=== PATIENT | male | born 1940 | race Caucasian/White ===

== ENCOUNTER 2018-04-14 14:43 | Inpatient (IN) | payer MEDICARE, OTHER ==
[~2018-04-14] VITALS: Ht 167.6 cm; Wt 57.0 kg
[~2018-04-14 14:43] MED LIST: ACIDOPHILUS100 MG PO; CHLO25TA10 PO; METF500T PO; SIMV20TA5 PO; SOLI10TA2 PO
[2018-04-14 15:12] LABS: BASOPHILS % (AUTO) 0.6 % (0-1); EOSINOPHILS # (AUTO) 0.4 X10'3 (0-0.9); EOSINOPHILS % (AUTO) 6.5 % (0-6); HEMATOCRIT 38.7 % (42.0-52.0); HEMOGLOBIN 13.2 g/dl (14.0-17.9); LYMPHOCYTES # (AUTO) 1.6 X10'3 (1.1-4.8); LYMPHOCYTES % (AUTO) 27.3 % (21-51); MEAN CORPUSCULAR HEMOGLOBIN 31.5 PG (27.0-31.0); MEAN CORPUSCULAR VOLUME 92.4 FL (78-98); MEAN PLATELET VOLUME 7.4 FL (7.4-10.4); MONOCYTES # (AUTO) 0.8 X10'3 (0-0.9); MONOCYTES % (AUTO) 12.9 % (2-12); NEUTROPHILS # (AUTO) 3.2 X10'3 (1.8-7.7); NEUTROPHILS % (AUTO) 52.7 % (42-75); PLATELET COUNT 240 X10'3 (140-440); RED BLOOD COUNT 4.18 X10'6 (4.70-6.10); RED CELL DISTRIBUTION WIDTH 12.6 % (11.5-14.5)
[2018-04-14 15:22] LABS: PARTIAL THROMBOPLASTIN TIME 25 SECONDS (22-32); PROTHROMBIN TIME 10.5 SECONDS (9.0-12.0)
[2018-04-14 15:29] LABS: ALANINE AMINOTRANSFERASE 27 U/L (12-78); ALBUMIN 4.1 G/DL (3.4-5.0); ALBUMIN/GLOBULIN RATIO 1.4 (1.1-1.5); ALKALINE PHOSPHATASE 41 IU/L (46-116); ANION GAP 2 (8-16); ASPARTATE AMINO TRANSFERASE 16 U/L (10-37); BILIRUBIN,TOTAL 0.4 MG/DL (0.1-1.0); BLOOD UREA NITROGEN 11 MG/DL (7-18); BUN/CREATININE RATIO 9.6 (5.4-32.0); CALCIUM 9.2 MG/DL (8.5-10.1); CHLORIDE 94 MMOL/L (99-107); CREATININE 1.14 MG/DL (0.60-1.10); GLUCOSE 119 MG/DL (70-104); POTASSIUM 3.6 MMOL/L (3.5-5.1); SODIUM 128 MMOL/L (135-145); TOTAL CARBON DIOXIDE 31.6 MMOL/L (24-32); TOTAL PROTEIN 7.1 G/DL (6.4-8.2); eGFR 62 ML/MIN
[2018-04-14] MEDS ORDERED: CHOL100025 PO (16:36)
[2018-04-14] MEDS ORDERED: MESSAGE TO PHARMACY PO ONE (18:15)
[2018-04-14] MEDS ORDERED: dextrose 50%-water 50ml dispensing syringe IV PRN ×2 (18:15)
[2018-04-14] MEDS ORDERED: insulin Lispro (HumaLOG) vial - multi-dose SQ SCH (18:15)
[2018-04-14] MEDS ORDERED: dextrose ORAL solution 15 GM/59 ML bottle PO PRN ×2 (18:15)
[2018-04-14] MEDS ORDERED: glucagon, human recombinant 1mg kit SUBCUT PRN (18:15)
[2018-04-14] MEDS ORDERED: acetaminophen 325mg tablet PO PRN (19:40)
[2018-04-14] MEDS ORDERED: magnesium hydroxide 30ml (MOM) UD suspension PO PRN (19:40)
[2018-04-14] MEDS ORDERED: mag hydrox/Alum hydrox/simeth 30ml oral suspension PO PRN (19:40)
[2018-04-14] MEDS ORDERED: ondansetron/PF 4mg/2ml inj IV PRN (19:40)
[2018-04-14] MEDS ORDERED: insulin glargine (Lantus) pen - multi-dose SQ SCH (21:00)
[2018-04-14] MEDS ORDERED: atorvastatin 10mg tablet PO SCH (21:00)
[2018-04-14 21:20] VITALS: BP 156/83
[2018-04-15 00:15] VITALS: BP 141/87
[2018-04-15 07:00] VITALS: BP 144/81
[2018-04-15] MEDS ORDERED: oxybutynin 5mg tablet PO SCH (08:00)
[2018-04-15] MEDS ORDERED: normal saline 1000ml 1,000 ML IV SCH (09:55)
[2018-04-15 09:59] LABS: ALBUMIN 3.8 G/DL (3.4-5.0); ANION GAP 5 (8-16); BLOOD UREA NITROGEN 12 MG/DL (7-18); BUN/CREATININE RATIO 10.5 (5.4-32.0); CALCIUM 9.1 MG/DL (8.5-10.1); CHLORIDE 95 MMOL/L (99-107); CREATININE 1.14 MG/DL (0.60-1.10); GLUCOSE 174 MG/DL (70-104); POTASSIUM 3.5 MMOL/L (3.5-5.1); SODIUM 132 MMOL/L (135-145); TOTAL CARBON DIOXIDE 32.2 MMOL/L (24-32); eGFR 62 ML/MIN
[2018-04-15 10:05] LABS: BASOPHILS % (AUTO) 0.3 % (0-1); EOSINOPHILS # (AUTO) 0.2 X10'3 (0-0.9); EOSINOPHILS % (AUTO) 3.9 % (0-6); HEMATOCRIT 39.9 % (42.0-52.0); HEMOGLOBIN 13.8 g/dl (14.0-17.9); LYMPHOCYTES % (AUTO) 17.2 % (21-51); MEAN CORPUSCULAR HEMOGLOBIN 31.8 PG (27.0-31.0); MEAN CORPUSCULAR HGB CONC 34.7 % (33.0-36.5); MEAN CORPUSCULAR VOLUME 91.7 FL (78-98); MEAN PLATELET VOLUME 7.6 FL (7.4-10.4); MONOCYTES # (AUTO) 0.5 X10'3 (0-0.9); MONOCYTES % (AUTO) 9.2 % (2-12); NEUTROPHILS # (AUTO) 3.8 X10'3 (1.8-7.7); NEUTROPHILS % (AUTO) 69.4 % (42-75); PLATELET COUNT 213 X10'3 (140-440); RED BLOOD COUNT 4.35 X10'6 (4.70-6.10); RED CELL DISTRIBUTION WIDTH 12.8 % (11.5-14.5); WHITE BLOOD COUNT 5.5 X10'3 (4.5-11.0)
[2018-04-15 11:52] VITALS: BP 144/83
[2018-04-15 15:30] LABS: ALBUMIN 3.7 G/DL (3.4-5.0); ANION GAP 7 (8-16); BLOOD UREA NITROGEN 12 MG/DL (7-18); BUN/CREATININE RATIO 10.6 (5.4-32.0); CALCIUM 8.6 MG/DL (8.5-10.1); CHLORIDE 97 MMOL/L (99-107); CREATININE 1.13 MG/DL (0.60-1.10); GLUCOSE 142 MG/DL (70-104); POTASSIUM 3.6 MMOL/L (3.5-5.1); SODIUM 134 MMOL/L (135-145); TOTAL CARBON DIOXIDE 29.7 MMOL/L (24-32); eGFR 63 ML/MIN
[2018-04-15] MEDS ORDERED: AMLO2.5T2 PO (15:50)
== END 2018-04-15 16:25 | disposition home or self-care (01) | DRG 641 ==
LOC: ER 14:44 → ED HOLD 19:39 → SUR 3N 21:20
PROVIDERS: ADMIT Internal Medicine; ATTEND Family Medicine
DX: E87.1 Hypo-osmolality and hyponatremia (principal); R42 Dizziness and giddiness; E11.9 Type 2 diabetes mellitus without complications; E78.5 Hyperlipidemia, unspecified; I10 Essential (primary) hypertension; E86.9 Volume depletion, unspecified; Z85.038 Personal history of other malignant neoplasm of large intestine; Z85.46 Personal history of malignant neoplasm of prostate; Z90.79 Acquired absence of other genital organ(s); Z88.6 Allergy status to analgesic agent; Z91.018 Allergy to other foods; Z90.49 Acquired absence of other specified parts of digestive tract; Z79.899 Other long term (current) drug therapy
CPT/HCPCS: 36415; 71045; 80048; 80053; 82948; 83036; 84484; 85025; 85610; 85730; 87070; 99285; J1815; J7030

== ENCOUNTER 2020-05-19 18:43 | Emergency (ER) | payer OTHER, MEDICARE ==
[~2020-05-19] VITALS: Ht 167.6 cm; Wt 64.1 kg
[~2020-05-19 18:43] MED LIST changes: -CHLO25TA10 PO; +CHOL100025 PO; +SIMV-42 PO; -SIMV20TA5 PO
[2020-05-19 19:11] VITALS: BP 126/88
[2020-05-19] MEDS ORDERED: dexamethasone sod phosphate 10mg/ml inj IM STA (20:22)
== END 2020-05-19 21:45 | disposition home or self-care (01) ==
LOC: ER 18:44
DX: L29.8 Other pruritus (principal); R21 Rash and other nonspecific skin eruption; K59.00 Constipation, unspecified; I10 Essential (primary) hypertension; E11.9 Type 2 diabetes mellitus without complications; Z85.038 Personal history of other malignant neoplasm of large intestine; Z98.890 Other specified postprocedural states; Z88.8 Allergy status to other drugs, medicaments and biological substances; Z79.899 Other long term (current) drug therapy
CPT/HCPCS: 96372; 99283; J1100

== ENCOUNTER 2020-07-24 17:35 | Emergency (ER) | payer OTHER, MEDICARE ==
[~2020-07-24] VITALS: Ht 167.6 cm; Wt 65.0 kg
[2020-07-24 18:48] LABS: BASOPHILS % (AUTO) 0.7 % (0-1); EOSINOPHILS # (AUTO) 0.3 X10'3 (0-0.9); EOSINOPHILS % (AUTO) 6.1 % (0-6); HEMATOCRIT 37.3 % (42.0-52.0); HEMOGLOBIN 12.5 g/dl (14.0-17.9); LYMPHOCYTES # (AUTO) 0.9 X10'3 (1.1-4.8); LYMPHOCYTES % (AUTO) 20.1 % (21-51); MEAN CORPUSCULAR HEMOGLOBIN 30.9 PG (27.0-31.0); MEAN CORPUSCULAR HGB CONC 33.6 g/dL (33.0-36.5); MEAN CORPUSCULAR VOLUME 91.9 FL (78-98); MEAN PLATELET VOLUME 7.8 FL (7.4-10.4); MONOCYTES # (AUTO) 0.9 X10'3 (0-0.9); MONOCYTES % (AUTO) 19.2 % (2-12); NEUTROPHILS # (AUTO) 2.4 X10'3 (1.8-7.7); NEUTROPHILS % (AUTO) 53.9 % (42-75); PLATELET COUNT 222 X10'3 (140-440); RED BLOOD COUNT 4.06 X10'6 (4.70-6.10); RED CELL DISTRIBUTION WIDTH 12.6 % (11.5-14.5); WHITE BLOOD COUNT 4.5 X10'3 (4.5-11.0)
[2020-07-24 19:19] LABS: ALANINE AMINOTRANSFERASE 20 U/L (12-78); ALBUMIN 3.9 G/DL (3.4-5.0); ALBUMIN/GLOBULIN RATIO 1.2 (1.1-1.5); ALKALINE PHOSPHATASE 49 IU/L (46-116); ANION GAP 6 (8-16); ASPARTATE AMINO TRANSFERASE 20 U/L (10-37); BILIRUBIN,TOTAL 0.3 MG/DL (0.1-1.0); BLOOD UREA NITROGEN 15 MG/DL (7-18); BUN/CREATININE RATIO 12.3 (5.4-32.0); CALCIUM 9.1 MG/DL (8.5-10.1); CHLORIDE 106 MMOL/L (99-107); CREATININE 1.22 MG/DL (0.60-1.10); GLUCOSE 118 MG/DL (70-104); POTASSIUM 3.8 MMOL/L (3.5-5.1); SODIUM 143 MMOL/L (135-145); TOTAL CARBON DIOXIDE 30.6 MMOL/L (24-32); TOTAL PROTEIN 7.2 G/DL (6.4-8.2); eGFR 57 ML/MIN
--- NOTE | 2020-07-24 19:29 | NUR ---
[phone] WIFES NUMBER, PLEASE CALL WITH ANY UPDATES
[2020-07-24 20:00] VITALS: BP 134/77
--- NOTE | 2020-07-24 20:10 | NUR ---
pt resting comfortably, needed leg bag emptied
[2020-07-24] MEDS ORDERED: normal saline 1000ML IV soln IVB ONE (20:35)
== END 2020-07-24 21:22 | disposition home or self-care (01) ==
LOC: ER 17:37
DX: U07.1 COVID-19 (principal); I10 Essential (primary) hypertension; E11.9 Type 2 diabetes mellitus without complications; E78.00 Pure hypercholesterolemia, unspecified; Z79.899 Other long term (current) drug therapy; Z79.82 Long term (current) use of aspirin
CPT/HCPCS: 36415; 71045; 80053; 82948; 83880; 84484; 85025; 87635; 93005; 96360; 99285; J7030

== ENCOUNTER 2021-07-03 09:29 | Emergency (ER) | payer OTHER, MEDICARE ==
[~2021-07-03] VITALS: Ht 167.6 cm; Wt 65.9 kg
[2021-07-03 10:11] LABS: CLARITY,URINE SLIGHTLY CLOUDY (Clear); COLOR,URINE YELLOW (Yellow); GLUCOSE, URINE NEGATIVE (Neg); KETONES,URINE NEGATIVE (Neg); LEUKOCYTE ESTERASE ,URINE NEGATIVE (Neg); NITRITES, URINE NEGATIVE (Neg); OCCULT BLOOD,URINE TRACE-LYSED (Neg); PROTEIN,URINE NEGATIVE (Neg); UA COLLECTION TYPE CLN CATCH MIDSTREAM; UROBILINOGEN,URINE 0.2 E.U/dL (0.2-1.0)
[2021-07-03 10:16] LABS: BACTERIA,URINE NONE SEEN /HPF (Neg); MUCUS STRANDS FEW /LPF (Neg); SQUAMOUS EPITHELIAL CELL,UR MODERATE /LPF (FEW)
[2021-07-03] MEDS ORDERED: SULF1TAB49 PO (10:52)
== END 2021-07-03 10:59 | disposition home or self-care (01) ==
LOC: ER 09:30
DX: N50.82 Scrotal pain (principal); E78.00 Pure hypercholesterolemia, unspecified; I10 Essential (primary) hypertension; E11.9 Type 2 diabetes mellitus without complications; Z85.038 Personal history of other malignant neoplasm of large intestine; Z98.890 Other specified postprocedural states; Z88.8 Allergy status to other drugs, medicaments and biological substances; Z79.2 Long term (current) use of antibiotics; Z79.899 Other long term (current) drug therapy
CPT/HCPCS: 81001; 87077; 87088; 87186; 99283

== ENCOUNTER 2021-10-10 06:18 | Emergency (ER) | payer OTHER, MEDICARE ==
[~2021-10-10] VITALS: Ht 167.6 cm; Wt 63.8 kg
[~2021-10-10 06:18] MED LIST changes: -SOLI10TA2 PO; +UNABLE TO OBTAIN
[2021-10-10 06:56] VITALS: BP 137/84
== END 2021-10-10 07:04 | disposition left against medical advice (07) ==
LOC: ER 06:19
DX: R21 Rash and other nonspecific skin eruption (principal); Z53.21 Procedure and treatment not carried out due to patient leaving prior to being seen by health care provider

== ENCOUNTER 2022-01-02 06:52 | Emergency (ER) | payer OTHER, MEDICARE ==
[~2022-01-02] VITALS: Ht 167.6 cm; Wt 63.6 kg
[2022-01-02 08:55] LABS: COLOR,URINE YELLOW (Yellow); GLUCOSE, URINE NEGATIVE (Neg); KETONES,URINE TRACE mg/dl (Neg); LEUKOCYTE ESTERASE ,URINE MODERATE (Neg); NITRITES, URINE POSITIVE (Neg); OCCULT BLOOD,URINE SMALL (Neg); PROTEIN,URINE TRACE mg/dl (Neg); UA COLLECTION TYPE CLN CATCH MIDSTREAM; UROBILINOGEN,URINE 0.2 E.U/dL (0.2-1.0)
[2022-01-02 08:56] LABS: CLARITY,URINE CLOUDY (Clear)
[2022-01-02 09:00] LABS: BACTERIA,URINE 3+ /HPF (Neg); MUCUS STRANDS NONE SEEN /LPF (Neg); SQUAMOUS EPITHELIAL CELL,UR FEW /LPF (FEW); WBC CLUMPS,URINE MANY /HPF (NEGATIVE); WBC,URINE TNTC /HPF (0-4)
[2022-01-02 09:17] LABS: BASOPHILS % (AUTO) 0.5 % (0-1); EOSINOPHILS # (AUTO) 0.1 X10'3 (0-0.9); EOSINOPHILS % (AUTO) 0.7 % (0-6); HEMATOCRIT 37.4 % (42.0-52.0); HEMOGLOBIN 12.6 g/dl (14.0-17.9); LYMPHOCYTES # (AUTO) 0.9 X10'3 (1.1-4.8); MEAN CORPUSCULAR HEMOGLOBIN 30.6 PG (27.0-31.0); MEAN CORPUSCULAR HGB CONC 33.8 g/dL (33.0-36.5); MEAN CORPUSCULAR VOLUME 90.6 FL (78-98); MEAN PLATELET VOLUME 7.4 FL (7.4-10.4); MONOCYTES # (AUTO) 0.6 X10'3 (0-0.9); MONOCYTES % (AUTO) 7.8 % (2-12); NEUTROPHILS # (AUTO) 6.2 X10'3 (1.8-7.7); PLATELET COUNT 228 X10'3 (140-440); RED BLOOD COUNT 4.13 X10'6 (4.70-6.10); RED CELL DISTRIBUTION WIDTH 12.5 % (11.5-14.5); WHITE BLOOD COUNT 7.9 X10'3 (4.5-11.0)
[2022-01-02 09:37] LABS: ALANINE AMINOTRANSFERASE 17 U/L (12-78); ALBUMIN 4.3 G/DL (3.4-5.0); ALBUMIN/GLOBULIN RATIO 1.3 (1.1-1.5); ALKALINE PHOSPHATASE 47 IU/L (46-116); ANION GAP 11 (8-16); ASPARTATE AMINO TRANSFERASE 24 U/L (10-37); BILIRUBIN,TOTAL 0.4 MG/DL (0.1-1.0); BLOOD UREA NITROGEN 17 MG/DL (7-18); BUN/CREATININE RATIO 13.6 (5.4-32.0); CALCIUM 9.4 MG/DL (8.5-10.1); CHLORIDE 98 MMOL/L (99-107); CREATININE 1.25 MG/DL (0.60-1.10); GLUCOSE 149 MG/DL (70-104); POTASSIUM 3.9 MMOL/L (3.5-5.1); SODIUM 136 MMOL/L (135-145); TOTAL CARBON DIOXIDE 27.2 MMOL/L (24-32); TOTAL PROTEIN 7.6 G/DL (6.4-8.2); eGFR 55 ML/MIN
[2022-01-02 09:46] VITALS: BP 133/105
[2022-01-02] MEDS ORDERED: CefTRIAXone 1000mg IM Kit (w/lidocaine diluent) IM ONE (10:25)
[2022-01-02] MEDS ORDERED: ibuprofen tablet 400 MG TABLET PO ONE (10:25)
[2022-01-02] MEDS ORDERED: MELO-100 PO (10:27)
== END 2022-01-02 11:09 | disposition home or self-care (01) ==
LOC: ER 06:53
DX: N39.0 Urinary tract infection, site not specified (principal); R00.2 Palpitations; E78.00 Pure hypercholesterolemia, unspecified; I10 Essential (primary) hypertension; E11.9 Type 2 diabetes mellitus without complications; Z87.440 Personal history of urinary (tract) infections; Z98.890 Other specified postprocedural states; Z85.038 Personal history of other malignant neoplasm of large intestine; Z88.8 Allergy status to other drugs, medicaments and biological substances; Z79.899 Other long term (current) drug therapy
CPT/HCPCS: 36415; 80053; 81001; 84145; 85025; 87088; 96372; 99284; J0696; 87077; 87186

== ENCOUNTER 2022-01-10 07:10 | Emergency (ER) | payer OTHER, MEDICARE ==
[~2022-01-10] VITALS: Ht 167.6 cm; Wt 63.6 kg
[~2022-01-10 07:10] MED LIST changes: +MELO-100 PO
[2022-01-10 09:37] LABS: CLARITY,URINE SLIGHTLY CLOUDY (Clear); COLOR,URINE YELLOW (Yellow); GLUCOSE, URINE 100 mg/dl (Neg); KETONES,URINE NEGATIVE (Neg); LEUKOCYTE ESTERASE ,URINE MODERATE (Neg); NITRITES, URINE POSITIVE (Neg); OCCULT BLOOD,URINE SMALL (Neg); PROTEIN,URINE NEGATIVE (Neg); UROBILINOGEN,URINE 0.2 E.U/dL (0.2-1.0)
[2022-01-10 09:45] LABS: UA COLLECTION TYPE VOIDED
[2022-01-10 09:47] LABS: RBC,URINE 0-2 /HPF (0-2); WBC,URINE 50-100 /HPF (0-4)
[2022-01-10 09:48] LABS: BACTERIA,URINE 1+ /HPF (Neg); SQUAMOUS EPITHELIAL CELL,UR FEW /LPF (FEW)
[2022-01-10 10:48] LABS: BASOPHILS % (AUTO) 0.1 % (0-1); EOSINOPHILS # (AUTO) 0.1 X10'3 (0-0.9); EOSINOPHILS % (AUTO) 1.1 % (0-6); HEMATOCRIT 36.8 % (42.0-52.0); HEMOGLOBIN 12.5 g/dl (14.0-17.9); LYMPHOCYTES # (AUTO) 1.2 X10'3 (1.1-4.8); MEAN CORPUSCULAR HEMOGLOBIN 31.2 PG (27.0-31.0); MEAN CORPUSCULAR HGB CONC 33.9 g/dL (33.0-36.5); MEAN PLATELET VOLUME 7.5 FL (7.4-10.4); MONOCYTES # (AUTO) 1.1 X10'3 (0-0.9); MONOCYTES % (AUTO) 10.3 % (2-12); NEUTROPHILS # (AUTO) 7.9 X10'3 (1.8-7.7); NEUTROPHILS % (AUTO) 76.5 % (42-75); PLATELET COUNT 269 X10'3 (140-440); RED CELL DISTRIBUTION WIDTH 12.4 % (11.5-14.5); WHITE BLOOD COUNT 10.4 X10'3 (4.5-11.0)
[2022-01-10 11:00] LABS: ALANINE AMINOTRANSFERASE 16 U/L (12-78); ALBUMIN 4.3 G/DL (3.4-5.0); ALBUMIN/GLOBULIN RATIO 1.2 (1.1-1.5); ALKALINE PHOSPHATASE 47 IU/L (46-116); ANION GAP 8 (8-16); ASPARTATE AMINO TRANSFERASE 15 U/L (10-37); BILIRUBIN,TOTAL 0.4 MG/DL (0.1-1.0); BLOOD UREA NITROGEN 20 MG/DL (7-18); BUN/CREATININE RATIO 15.9 (5.4-32.0); CALCIUM 9.8 MG/DL (8.5-10.1); CHLORIDE 102 MMOL/L (99-107); CREATININE 1.26 MG/DL (0.60-1.10); GLUCOSE 120 MG/DL (70-104); POTASSIUM 4.2 MMOL/L (3.5-5.1); SODIUM 140 MMOL/L (135-145); TOTAL CARBON DIOXIDE 30.4 MMOL/L (24-32); TOTAL PROTEIN 7.8 G/DL (6.4-8.2); eGFR 55 ML/MIN
[2022-01-10 14:20] VITALS: BP 142/76
--- NOTE | 2022-01-13 10:15 | NUR ---
PT CALLED REGARDING LAB RESULTS FROM HIS VISIT ON 01/10/22. PT WAS NOTED TO HAVE A UTI AND WAS NOT GIVEN RX FOR ABX. PT STATES THAT HE SAW HIS UROLOGIST, DR SIMS; THE OTHER DAY AND PUT HIM ON CIPRO. PT INFORMED THAT THE MEDICATION HE IS CURRANTLY ON IS THE MEDICATION THAT WE WERE GOING TO PERSCRIBE. PT STATES THAT HE IS DOING BETTER AND HAD A "BLOCKAGE" AND A NEW CHILDS CATH PLACED.
== END 2022-01-10 14:22 | disposition home or self-care (01) ==
LOC: ER 07:12
DX: N39.0 Urinary tract infection, site not specified (principal); R33.9 Retention of urine, unspecified; E78.00 Pure hypercholesterolemia, unspecified; I10 Essential (primary) hypertension; E11.9 Type 2 diabetes mellitus without complications; Z87.440 Personal history of urinary (tract) infections; Z85.038 Personal history of other malignant neoplasm of large intestine; Z98.890 Other specified postprocedural states; Z88.8 Allergy status to other drugs, medicaments and biological substances; Z79.899 Other long term (current) drug therapy
CPT/HCPCS: 36415; 51702; 74176; 76770; 80053; 81001; 85025; 87077; 87088; 87186; 99284; 99285

== ENCOUNTER 2022-03-17 14:42 | Emergency (ER) | payer OTHER, MEDICARE ==
[~2022-03-17] VITALS: Ht 167.6 cm; Wt 65.9 kg
[2022-03-17] MEDS ORDERED: LIDOcaine 2% 10ml TOPICAL JELLY (Urojet) MM ONE (15:25)
[2022-03-17] MEDS ORDERED: LIDOcaine 2% 10ml TOPICAL JELLY (Urojet) TP ONE (15:35)
[2022-03-17] MEDS ORDERED: morphine 4 MG/ML inj SYRINge IM ONE (17:50)
[2022-03-17 19:30] VITALS: BP 149/89
[2022-04-02] MEDS ORDERED: LEVO-65 PO (14:04)
== END 2022-03-17 19:39 | disposition home or self-care (01) ==
LOC: ER 14:43
DX: R33.9 Retention of urine, unspecified (principal); E78.00 Pure hypercholesterolemia, unspecified; I10 Essential (primary) hypertension; E11.9 Type 2 diabetes mellitus without complications; Z85.038 Personal history of other malignant neoplasm of large intestine; Z88.6 Allergy status to analgesic agent; Z79.899 Other long term (current) drug therapy; Z79.84 Long term (current) use of oral hypoglycemic drugs
CPT/HCPCS: 51702; 96372; 99284; J2270; A4314; A4340; C1758

== ENCOUNTER 2022-04-02 09:32 | Emergency (ER) | payer OTHER, MEDICARE ==
[~2022-04-02] VITALS: Ht 167.6 cm; Wt 61.0 kg
[2022-04-02 10:03] LABS: CLARITY,URINE CLOUDY (Clear); COLOR,URINE YELLOW (Yellow); GLUCOSE, URINE NEGATIVE (Neg); KETONES,URINE NEGATIVE (Neg); LEUKOCYTE ESTERASE ,URINE SMALL (Neg); NITRITES, URINE POSITIVE (Neg); OCCULT BLOOD,URINE MODERATE (Neg); PH,URINE 5.5 (4.8-8.0); PROTEIN,URINE TRACE mg/dl (Neg); UA COLLECTION TYPE FOLEY CATH; UROBILINOGEN,URINE 0.2 E.U/dL (0.2-1.0)
[2022-04-02 10:17] LABS: MUCUS STRANDS MODERATE /LPF (Neg); SQUAMOUS EPITHELIAL CELL,UR MODERATE /LPF (FEW)
[2022-04-02 10:18] LABS: TRANSITIONAL EPI CELLS,URINE FEW /HPF; YEAST MANY /HPF (NEGATIVE)
[2022-04-02 10:19] LABS: BACTERIA,URINE FEW /HPF (Neg); RBC,URINE 0-2 /HPF (0-2); WBC CLUMPS,URINE MANY /HPF (NEGATIVE)
[2022-04-02 11:55] VITALS: BP 149/84
[2022-04-02 12:47] LABS: BASOPHILS % (AUTO) 0.3 % (0-1); EOSINOPHILS # (AUTO) 0.1 X10'3 (0-0.9); EOSINOPHILS % (AUTO) 1.1 % (0-6); HEMATOCRIT 37.5 % (42.0-52.0); HEMOGLOBIN 12.6 g/dl (14.0-17.9); LYMPHOCYTES # (AUTO) 1.4 X10'3 (1.1-4.8); LYMPHOCYTES % (AUTO) 14.5 % (21-51); MEAN CORPUSCULAR HEMOGLOBIN 30.8 PG (27.0-31.0); MEAN CORPUSCULAR HGB CONC 33.7 g/dL (33.0-36.5); MEAN CORPUSCULAR VOLUME 91.4 FL (78-98); MEAN PLATELET VOLUME 7.7 FL (7.4-10.4); MONOCYTES # (AUTO) 0.8 X10'3 (0-0.9); MONOCYTES % (AUTO) 8.5 % (2-12); NEUTROPHILS # (AUTO) 7.2 X10'3 (1.8-7.7); NEUTROPHILS % (AUTO) 75.6 % (42-75); PLATELET COUNT 273 X10'3 (140-440); RED CELL DISTRIBUTION WIDTH 13.7 % (11.5-14.5); WHITE BLOOD COUNT 9.5 X10'3 (4.5-11.0)
[2022-04-02 12:54] LABS: ALANINE AMINOTRANSFERASE 18 U/L (12-78); ALBUMIN 4.1 G/DL (3.4-5.0); ALBUMIN/GLOBULIN RATIO 1.2 (1.1-1.5); ALKALINE PHOSPHATASE 44 IU/L (46-116); ANION GAP 10 (8-16); ASPARTATE AMINO TRANSFERASE 23 U/L (10-37); BILIRUBIN,TOTAL 0.6 MG/DL (0.1-1.0); BLOOD UREA NITROGEN 19 MG/DL (7-18); BUN/CREATININE RATIO 14.7 (5.4-32.0); CALCIUM 9.2 MG/DL (8.5-10.1); CHLORIDE 103 MMOL/L (99-107); CREATININE 1.29 MG/DL (0.60-1.10); GLUCOSE 108 MG/DL (70-104); POTASSIUM 3.8 MMOL/L (3.5-5.1); SODIUM 140 MMOL/L (135-145); TOTAL PROTEIN 7.5 G/DL (6.4-8.2); eGFR 53 ML/MIN
[2022-04-02] MEDS ORDERED: cephalexin 250mg capsule PO ONE (13:55)
[2022-04-02] MEDS ORDERED: LEVO500T90 PO (14:04)
== END 2022-04-02 14:35 | disposition home or self-care (01) ==
LOC: ER 09:32
DX: N39.0 Urinary tract infection, site not specified (principal); E78.00 Pure hypercholesterolemia, unspecified; I10 Essential (primary) hypertension; E11.9 Type 2 diabetes mellitus without complications; Z87.440 Personal history of urinary (tract) infections; Z85.038 Personal history of other malignant neoplasm of large intestine; Z90.49 Acquired absence of other specified parts of digestive tract; Z88.8 Allergy status to other drugs, medicaments and biological substances; Z79.2 Long term (current) use of antibiotics; Z79.899 Other long term (current) drug therapy; Z94.6 Bone transplant status; Z98.890 Other specified postprocedural states
CPT/HCPCS: 36415; 74176; 80053; 81001; 84145; 85025; 87077; 87088; 99284

== ENCOUNTER 2023-01-08 22:02 | Emergency (ER) | payer OTHER, MEDICARE ==
[~2023-01-08] VITALS: Ht 167.6 cm; Wt 63.6 kg
[2023-01-09 01:30] VITALS: BP 140/88
--- NOTE | 2023-01-09 01:32 | NUR ---
PER PROVIDER, PT UA NOT NEEDED AND NEW CHILDS NOT NEEDED.
== END 2023-01-09 01:32 | disposition home or self-care (01) ==
LOC: ER 22:03
DX: T83.091A Other mechanical complication of indwelling urethral catheter, initial encounter (principal); Z53.21 Procedure and treatment not carried out due to patient leaving prior to being seen by health care provider
CPT/HCPCS: 99281

== ENCOUNTER 2023-05-09 10:17 | Inpatient (IN) | payer OTHER, MEDICARE ==
[~2023-05-09] VITALS: Ht 167.6 cm; Wt 56.4 kg
[2023-05-09] VITALS (16 sets, daily range): BP systolic 92–117; BP diastolic 52–63; PULSE 70–88; RESP 14–18; TEMP 98; O2SAT 85–100
[~2023-05-09 10:17] MED LIST changes: -ACIDOPHILUS100 MG PO; +CEPH-585 PO; -CHOL100025 PO; -MELO-100 PO; +ONDA8TAB13 PO
[2023-05-09 11:11] LABS: BILIRUBIN,URINE NEGATIVE (Neg); CLARITY,URINE CLOUDY (Clear); COLOR,URINE YELLOW (Yellow); GLUCOSE, URINE NEGATIVE (Neg); KETONES,URINE NEGATIVE (Neg); LEUKOCYTE ESTERASE ,URINE MODERATE (Neg); NITRITES, URINE NEGATIVE (Neg); OCCULT BLOOD,URINE MODERATE (Neg); PH,URINE 7.5 (4.8-8.0); PROTEIN,URINE 100 mg/dl (Neg); UROBILINOGEN,URINE 0.2 E.U/dL (0.2-1.0)
[2023-05-09 11:21] LABS: UA COLLECTION TYPE FOLEY CATH
[2023-05-09 11:23] LABS: BACTERIA,URINE 4+ /HPF (Neg)
[2023-05-09 11:24] LABS: AMORPHOUS PHOSPHATES 2+; MUCUS STRANDS MODERATE /LPF (Neg); RENAL CELLS, URINE FEW /HPF; SQUAMOUS EPITHELIAL CELL,UR FEW /LPF (FEW); TRANSITIONAL EPI CELLS,URINE FEW /HPF
[2023-05-09 11:25] LABS: FINE GRANULAR CAST 0-3 /LPF (NEGATIVE)
[2023-05-09 11:30] LABS: BASOPHILS % (AUTO) 0.2 % (0-1); EOSINOPHILS % (AUTO) 0.1 % (0-6); HEMATOCRIT 22.5 % (42.0-52.0); LYMPHOCYTES # (AUTO) 0.7 X10'3 (1.1-4.8); LYMPHOCYTES % (AUTO) 4.3 % (21-51); MEAN CORPUSCULAR HEMOGLOBIN 26.7 PG (27.0-31.0); MEAN CORPUSCULAR HGB CONC 31.1 g/dL (33.0-36.5); MEAN CORPUSCULAR VOLUME 85.7 FL (78-98); MEAN PLATELET VOLUME 7.4 FL (7.4-10.4); MONOCYTES # (AUTO) 0.9 X10'3 (0-0.9); MONOCYTES % (AUTO) 6.1 % (2-12); NEUTROPHILS # (AUTO) 13.5 X10'3 (1.8-7.7); NEUTROPHILS % (AUTO) 89.3 % (42-75); PLATELET COUNT 317 X10'3 (140-440); RED BLOOD COUNT 2.62 X10'6 (4.70-6.10); RED CELL DISTRIBUTION WIDTH 15.5 % (11.5-14.5); WHITE BLOOD COUNT 15.1 X10'3 (4.5-11.0)
[2023-05-09 11:50] LABS: ALANINE AMINOTRANSFERASE 26 U/L (12-78); ALBUMIN 2.5 G/DL (3.4-5.0); ALBUMIN/GLOBULIN RATIO 0.5 (1.1-1.5); ALKALINE PHOSPHATASE 103 IU/L (46-116); ANION GAP 10 (8-16); ASPARTATE AMINO TRANSFERASE 25 U/L (10-37); BILIRUBIN,TOTAL 0.5 MG/DL (0.1-1.0); BLOOD UREA NITROGEN 46 MG/DL (7-18); BUN/CREATININE RATIO 10.9 (10.0-20.0); CALCIUM 8.6 MG/DL (8.5-10.1); CHLORIDE 93 MMOL/L (99-107); CREATININE 4.21 MG/DL (0.60-1.10); GLUCOSE 203 MG/DL (70-104); LIPASE 158 U/L (73-393); MAGNESIUM 1.5 MG/DL (1.5-2.4); POTASSIUM 4.1 MMOL/L (3.5-5.1); SODIUM 126 MMOL/L (135-145); TOTAL CARBON DIOXIDE 22.9 MMOL/L (24-32); TOTAL PROTEIN 7.2 G/DL (6.4-8.2); eCRCL 11 ML/MIN; eGFR 14 ML/MIN
[2023-05-09] MEDS ORDERED: magnesium oxide 400mg tablet PO ONE (12:20)
[2023-05-09] MEDS ORDERED: CYAN-104 PO (14:01)
[2023-05-09] MEDS ORDERED: AMLO10TA PO (14:01)
[2023-05-09] MEDS ORDERED: LOSA-415 PO (14:01)
[2023-05-09] MEDS ORDERED: LACT1TAB15 PO (14:01)
[2023-05-09] MEDS ORDERED: piperacillin/tazo 4.5gm/100ml 100 ML IV ONE (14:15)
[2023-05-09] MEDS ORDERED: normal saline 1000ML IV soln IVB ONE ×2 (14:25→16:25)
--- NOTE | 2023-05-09 14:30 | NUR ---
Spoke with pharmacy about patient allergy to Cephalexin, patient is adamant that he is only allergic to aspirin and that it causes him to have upset stomach. Patient asked multiple times about Cephalexin and/or Keflex and he denies allergy to that abx and/or any abx.
--- NOTE | 2023-05-09 15:09 | NUR ---
Patient complaining of itching, states he didn't have itching prior to IV abx. Following assesment of patient he was found to have hives over trunk. Ohlfs made aware, IV discontinued.
[2023-05-09] MEDS ORDERED: diphenhydrAMINE 50 mg/ml inj IV ONE (15:10)
--- NOTE | 2023-05-09 16:40 | NUR ---
Patient to CT
--- NOTE | 2023-05-09 16:54 | NUR ---
Patient returned from CT
--- NOTE | 2023-05-09 18:04 | NUR ---
DR. LARSON CALLED @1801- HE WILL BE IN ER WITHIN THE NEXT 30 MINS TO SEE BED 7 AND DO ADMIT ORDERS
--- NOTE | 2023-05-09 18:15 | NUR ---
Received call from Dr. Hernández, patient to remain NPO until further notice, pending stent placement.
[2023-05-09] MEDS ORDERED: magnesium 2GM in 50ml NS 50 ML IV PRN (18:50)
[2023-05-09] MEDS ORDERED: dextrose 50%-water 50ml dispensing syringe IV PRN ×2 (18:50)
[2023-05-09] MEDS ORDERED: glucagon, human recombinant 1mg kit SUBCUT PRN (18:50)
[2023-05-09] MEDS ORDERED: ondansetron/PF 4mg/2ml inj IV PRN ×2 (18:50→19:05)
[2023-05-09] MEDS ORDERED: potassium Cl 40MEQ/1/2NS 520ml 520 ML IV PRN (18:50)
[2023-05-09] MEDS ORDERED: DEXTROSE 15 GM of carb/4 tabs (each vial/BOTTLE has 4 tablets) PO PRN ×2 (18:50)
[2023-05-09] MEDS ORDERED: morphine 2 MG/ML inj. syringe IV PRN (18:50)
[2023-05-09] MEDS ORDERED: magnesium 4gm in 100ml NS 100 ML IV PRN (18:50)
[2023-05-09] MEDS ORDERED: potassium Cl 20 mEq SR tablet PO PRN ×2 (18:50)
[2023-05-09] MEDS ORDERED: MESSAGE TO PHARMACY PO ONE (18:50)
[2023-05-09] MEDS ORDERED: acetaminophen 325mg tablet PO PRN (18:50)
--- NOTE | 2023-05-09 18:50 | NUR ---
PATIENT TAKEN TO OR BY OR TECH - NO QUESTIONS OR CONCERNS OF PATIENT OR OR TECH.
[2023-05-09] MEDS ORDERED: iohexol 300 MG/1 ML 50ml polymer ONE (19:03)
[2023-05-09] MEDS ORDERED: morphine 4 MG/ML inj SYRINge IV PRN (19:05)
[2023-05-09] MEDS ORDERED: meperidine/PF 25mg/ml syringe IV PRN ×3 (19:05)
[2023-05-09] MEDS ORDERED: proCHLORperazine 10 MG/2 ml inj IV PRN (19:05)
[2023-05-09] MEDS ORDERED: ringers solution, lacted 1,000 ML IV SCH (19:05)
[2023-05-09] MEDS ORDERED: fentaNYL/PF 50MCG/1 ML 2ML syringe ONE (19:11)
[2023-05-09] MEDS ORDERED: propofol inj 20 ML IV ONE (19:11)
[2023-05-09] MEDS ORDERED: sevoflurane 250ml liquid IH ONE (19:14)
[2023-05-09] MEDS ORDERED: ceFAZolin 1000mg inj ONE ×2 (19:25→19:26)
[2023-05-09] MEDS ORDERED: iohexol 300 MG/1 ML 10ml vial IV ONE (19:32)
[2023-05-09] MEDS: docusate sod 100mg capsule PO SCH (20:00)
--- NOTE | 2023-05-09 20:14 | NUR ---
Received from OR via BOB, accompanied by Anesthesiologist DR BLACK and report given by Anesthesiologist AND OUTPATIENT CLERK. PT DROWSY, DENIES PAIN, STATES HAS SOME CHRONIC BACK PAIN BUT DECLINES PAIN MEDICATION AT THIS TIME. PT W/SUPRAPUBIC CATHETER W/PURULENT URINE IN DRAINAGE TUBE, CHILDS CATHETER ALSO W/PURULENT DRAINAGE IN CATHETER BOTH TO GRAVITY DRAINAGE. Addendum: 05/09/23 at 2048 by Isabela Power RN Amended: Links added.
[2023-05-09] MEDS ORDERED: oxybutynin 5mg tablet PO PRN (20:20)
[2023-05-09] MEDS ORDERED: phenazopyridine 100mg tablet PO PRN (20:20)
[2023-05-09] MEDS: morphine 2 MG/ML inj. syringe IV PRN ×4 (20:55→23:43)
[2023-05-09] MEDS: insulin glargine (Lantus) pen - multi-dose SQ SCH (21:00)
--- NOTE | 2023-05-09 21:44 | NUR ---
Report called to receiving nurse. Transferred via GURNEY W/1 BAG OF Belongings TO ROOM 4012B, TRANSFERRED OVER ONTO BED W/ASSIST OF RECEIVING RN. PT PAIN IMPROVED. BLL, CALL LIGHT GIVEN, SIDE RAILS UP X 2. Special Issues communicated to receiving nurse. YES. Addendum: 05/09/23 at 2150 by Isabela Power RN Amended: Links added.
[2023-05-09 22:55] LABS: HEMOGLOBIN A1C 7.4 % (4.5-6.2)
[2023-05-09] MEDS: normal saline 1000ml 1,000 ML IV SCH (23:49)
[2023-05-09] MEDS: K and/or MAG REPLACEMENT MC SCH (23:51)
[2023-05-10] VITALS (17 sets, daily range): BP systolic 97–160; BP diastolic 52–67; PULSE 68–84; RESP 14–20; TEMP 97.5–98.9; O2SAT 90–100
[2023-05-10] MEDS: morphine 2 MG/ML inj. syringe IV PRN (04:34)
[2023-05-10] MEDS: normal saline 1000ml 1,000 ML IV SCH ×2 (04:50→12:49)
--- NOTE | 2023-05-10 06:27 | NUR ---
Problems reprioritized. Patient report given, questions answered & plan of care reviewed with LIANG BATISTA.
[2023-05-10 06:28] LABS: BASOPHILS % (AUTO) 0.3 % (0-1); EOSINOPHILS # (AUTO) 0.1 X10'3 (0-0.9); EOSINOPHILS % (AUTO) 0.8 % (0-6); LYMPHOCYTES % (AUTO) 9.5 % (21-51); MEAN CORPUSCULAR HEMOGLOBIN 27.6 PG (27.0-31.0); MEAN CORPUSCULAR HGB CONC 32.4 g/dL (33.0-36.5); MEAN CORPUSCULAR VOLUME 85.2 FL (78-98); MEAN PLATELET VOLUME 7.7 FL (7.4-10.4); MONOCYTES # (AUTO) 1.2 X10'3 (0-0.9); MONOCYTES % (AUTO) 10.8 % (2-12); NEUTROPHILS # (AUTO) 8.6 X10'3 (1.8-7.7); NEUTROPHILS % (AUTO) 78.6 % (42-75); PLATELET COUNT 276 X10'3 (140-440); RED BLOOD COUNT 2.37 X10'6 (4.70-6.10); RED CELL DISTRIBUTION WIDTH 15.8 % (11.5-14.5); WHITE BLOOD COUNT 10.9 X10'3 (4.5-11.0)
[2023-05-10 06:37] LABS: ALANINE AMINOTRANSFERASE 18 U/L (12-78); ALBUMIN 1.9 G/DL (3.4-5.0); ALBUMIN/GLOBULIN RATIO 0.5 (1.1-1.5); ALKALINE PHOSPHATASE 81 IU/L (46-116); ANION GAP 10 (8-16); ASPARTATE AMINO TRANSFERASE 16 U/L (10-37); BILIRUBIN,TOTAL 0.2 MG/DL (0.1-1.0); BLOOD UREA NITROGEN 42 MG/DL (7-18); BUN/CREATININE RATIO 11.2 (10.0-20.0); CALCIUM 8.2 MG/DL (8.5-10.1); CHLORIDE 100 MMOL/L (99-107); CREATININE 3.75 MG/DL (0.60-1.10); GLUCOSE 114 MG/DL (70-104); MAGNESIUM 1.7 MG/DL (1.5-2.4); SODIUM 133 MMOL/L (135-145); TOTAL CARBON DIOXIDE 23.5 MMOL/L (24-32); TOTAL PROTEIN 5.5 G/DL (6.4-8.2); eCRCL 12 ML/MIN; eGFR 16 ML/MIN
[2023-05-10 06:39] LABS: HEMATOCRIT 20.2 % (42.0-52.0); HEMOGLOBIN 6.5 g/dl (14.0-17.9)
--- NOTE | 2023-05-10 06:44 | NUR ---
Patient in room ORTHO 4012. I have received report from LIANG Salgado and had the opportunity to ask questions and assume patient care.
--- NOTE | 2023-05-10 06:45 | NUR ---
Call to Dr. Stevens to notify of Hgb/hct 6.5/20.[address] Stevens ok to transfuse [address] Galarza previous order. Pt VSS and asymptomatic at this time.
[2023-05-10] MEDS: docusate sod 100mg capsule PO SCH ×2 (08:00→20:30)
[2023-05-10] MEDS: K and/or MAG REPLACEMENT MC SCH ×2 (08:00→20:00)
--- NOTE | 2023-05-10 11:31 | NUR ---
Diabetes consult: Pt admit for obstructive uropathy, sepsis likely secondary to obstructive uropathy, SANTIAGO/CKD, and hyponatremia, and hypotensive per EMR. Pt presents with an A1c of 7.4% this admit. Diabetes nutrition education not warranted at this time due to A1c appropriate for advanced age. Per EMR pt in OR yesterday for cystoscopy, retrograde pyelogram, and placement ureteral stent. Pt is currently on a carbohydrate controlled diet; pending PO intake. Recommend liberalizing diet to regular given advanced age, A1c appropriate for age, good BG control , and no insulin given yet this admit; discussed with RN. Will monitor PO intake trend and need for ONS. 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 Will continue to monitor and make recommendations as appropriate. Recommendations 1.recommend liberalizing diet to regular; discussed with RN 2.monitor PO intake and need for ONS 3.routine bowel care 4.scaled wt this admit;subsequent weekly scaled wt Addendum: 05/10/23 at [address] Amended: Links added.
[2023-05-10 14:29] LABS: HEMOGLOBIN 8.3 g/dl (14.0-17.9); MEAN CORPUSCULAR HEMOGLOBIN 28.2 PG (27.0-31.0); MEAN CORPUSCULAR HGB CONC 33.2 g/dL (33.0-36.5); MEAN CORPUSCULAR VOLUME 85.2 FL (78-98); MEAN PLATELET VOLUME 7.8 FL (7.4-10.4); PLATELET COUNT 308 X10'3 (140-440); RED BLOOD COUNT 2.94 X10'6 (4.70-6.10); RED CELL DISTRIBUTION WIDTH 15.3 % (11.5-14.5)
[2023-05-10] MEDS: lactobacillus rhamnosus 10,000 MMU CELLS/CAPSULE PO SCH (20:30)
[2023-05-10] MEDS: atorvastatin 10mg tablet PO SCH (20:31)
[2023-05-10] MEDS: insulin glargine (Lantus) pen - multi-dose SQ SCH (21:00)
--- NOTE | 2023-05-10 23:24 | NUR ---
Charting by Idalmis AIKEN reviewed by Giovanna Caballero RN. Contact isolation in charting was a typo. Pt on standard precautions.
[2023-05-11] VITALS (9 sets, daily range): BP systolic 112–141; BP diastolic 64–89; PULSE 74–105; RESP 13–18; TEMP 97.1–98.6; O2SAT 94–98
[2023-05-11] MEDS: normal saline 1000ml 1,000 ML IV SCH ×3 (01:47→20:45)
--- NOTE | 2023-05-11 06:21 | NUR ---
Problems reprioritized. Patient report given, questions answered & plan of care reviewed with LIANG Saucedo.
[2023-05-11 07:01] LABS: BASOPHILS % (AUTO) 0.2 % (0-1); EOSINOPHILS # (AUTO) 0.2 X10'3 (0-0.9); EOSINOPHILS % (AUTO) 1.5 % (0-6); HEMATOCRIT 25.1 % (42.0-52.0); LYMPHOCYTES # (AUTO) 0.8 X10'3 (1.1-4.8); LYMPHOCYTES % (AUTO) 6.7 % (21-51); MEAN CORPUSCULAR HEMOGLOBIN 27.3 PG (27.0-31.0); MEAN CORPUSCULAR HGB CONC 31.9 g/dL (33.0-36.5); MEAN CORPUSCULAR VOLUME 85.5 FL (78-98); MEAN PLATELET VOLUME 7.6 FL (7.4-10.4); MONOCYTES # (AUTO) 0.9 X10'3 (0-0.9); MONOCYTES % (AUTO) 7.3 % (2-12); NEUTROPHILS # (AUTO) 10.5 X10'3 (1.8-7.7); NEUTROPHILS % (AUTO) 84.3 % (42-75); PLATELET COUNT 334 X10'3 (140-440); RED BLOOD COUNT 2.94 X10'6 (4.70-6.10); RED CELL DISTRIBUTION WIDTH 15.9 % (11.5-14.5); WHITE BLOOD COUNT 12.5 X10'3 (4.5-11.0)
[2023-05-11 07:18] LABS: ALANINE AMINOTRANSFERASE 15 U/L (12-78); ALBUMIN 1.9 G/DL (3.4-5.0); ALBUMIN/GLOBULIN RATIO 0.5 (1.1-1.5); ALKALINE PHOSPHATASE 80 IU/L (46-116); ANION GAP 7 (8-16); ASPARTATE AMINO TRANSFERASE 16 U/L (10-37); BILIRUBIN,TOTAL 0.2 MG/DL (0.1-1.0); BLOOD UREA NITROGEN 39 MG/DL (7-18); BUN/CREATININE RATIO 11.5 (10.0-20.0); CALCIUM 8.2 MG/DL (8.5-10.1); CHLORIDE 104 MMOL/L (99-107); CREATININE 3.39 MG/DL (0.60-1.10); GLUCOSE 133 MG/DL (70-104); MAGNESIUM 1.7 MG/DL (1.5-2.4); POTASSIUM 4.3 MMOL/L (3.5-5.1); SODIUM 135 MMOL/L (135-145); TOTAL CARBON DIOXIDE 23.6 MMOL/L (24-32); TOTAL PROTEIN 5.8 G/DL (6.4-8.2); eCRCL 13 ML/MIN; eGFR 17 ML/MIN
[2023-05-11] MEDS: K and/or MAG REPLACEMENT MC SCH ×2 (08:00→20:00)
[2023-05-11] MEDS ORDERED: levoFLOXACIN-Levaquin 500mg/D5 100 ML IV SCH (08:00)
[2023-05-11] MEDS: cyanocobalamin 500mcg tablet PO SCH (08:24)
[2023-05-11] MEDS: lactobacillus rhamnosus 10,000 MMU CELLS/CAPSULE PO SCH ×2 (08:24→20:31)
[2023-05-11] MEDS: docusate sod 100mg capsule PO SCH ×2 (08:24→20:31)
[2023-05-11] MEDS: insulin Lispro (HumaLOG) vial - multi-dose SQ SCH (09:25)
[2023-05-11] MEDS: atorvastatin 10mg tablet PO SCH (20:31)
[2023-05-11] MEDS: insulin glargine (Lantus) pen - multi-dose SQ SCH (22:13)
[2023-05-12 06:00] VITALS: BP 136/64; PULSE 79; RESP 15; TEMP 97.5; O2SAT 96
[2023-05-12 06:12] LABS: BASOPHILS % (AUTO) 0.2 % (0-1); EOSINOPHILS # (AUTO) 0.2 X10'3 (0-0.9); EOSINOPHILS % (AUTO) 1.6 % (0-6); HEMATOCRIT 24.6 % (42.0-52.0); HEMOGLOBIN 8.2 g/dl (14.0-17.9); LYMPHOCYTES # (AUTO) 1.1 X10'3 (1.1-4.8); LYMPHOCYTES % (AUTO) 11.4 % (21-51); MEAN CORPUSCULAR HEMOGLOBIN 28.4 PG (27.0-31.0); MEAN CORPUSCULAR HGB CONC 33.2 g/dL (33.0-36.5); MEAN CORPUSCULAR VOLUME 85.6 FL (78-98); MEAN PLATELET VOLUME 7.5 FL (7.4-10.4); MONOCYTES # (AUTO) 0.6 X10'3 (0-0.9); MONOCYTES % (AUTO) 5.8 % (2-12); NEUTROPHILS # (AUTO) 7.9 X10'3 (1.8-7.7); PLATELET COUNT 359 X10'3 (140-440); RED BLOOD COUNT 2.87 X10'6 (4.70-6.10); RED CELL DISTRIBUTION WIDTH 15.6 % (11.5-14.5); WHITE BLOOD COUNT 9.8 X10'3 (4.5-11.0)
[2023-05-12 06:28] LABS: ALANINE AMINOTRANSFERASE 11 U/L (12-78); ALBUMIN/GLOBULIN RATIO 0.5 (1.1-1.5); ALKALINE PHOSPHATASE 76 IU/L (46-116); ANION GAP 10 (8-16); ASPARTATE AMINO TRANSFERASE 16 U/L (10-37); BILIRUBIN,TOTAL 0.3 MG/DL (0.1-1.0); BLOOD UREA NITROGEN 36 MG/DL (7-18); BUN/CREATININE RATIO 11.2 (10.0-20.0); CALCIUM 8.2 MG/DL (8.5-10.1); CHLORIDE 105 MMOL/L (99-107); CREATININE 3.21 MG/DL (0.60-1.10); GLUCOSE 111 MG/DL (70-104); MAGNESIUM 1.5 MG/DL (1.5-2.4); POTASSIUM 3.8 MMOL/L (3.5-5.1); SODIUM 137 MMOL/L (135-145); TOTAL CARBON DIOXIDE 21.9 MMOL/L (24-32); TOTAL PROTEIN 5.8 G/DL (6.4-8.2); eCRCL 14 ML/MIN; eGFR 19 ML/MIN
--- NOTE | 2023-05-12 06:34 | NUR ---
Problems reprioritized. Patient report given, questions answered & plan of care reviewed with Sheryl TAVERA.
[2023-05-12] MEDS ORDERED: piperacillin/tazo 3.375gm/50ml 50 ML IV SCH (07:05)
[2023-05-12] MEDS: K and/or MAG REPLACEMENT MC SCH ×2 (08:00→18:43)
[2023-05-12] MEDS: cyanocobalamin 500mcg tablet PO SCH (08:07)
[2023-05-12] MEDS: piperacillin/tazo 3.375gm/50ml 50 ML IV SCH ×2 (08:07→20:33)
[2023-05-12] MEDS: lactobacillus rhamnosus 10,000 MMU CELLS/CAPSULE PO SCH ×2 (08:07→20:33)
[2023-05-12] MEDS: docusate sod 100mg capsule PO SCH ×2 (08:07→20:00)
[2023-05-12] MEDS: normal saline 1000ml 1,000 ML IV SCH ×2 (08:07→17:34)
[2023-05-12] MEDS: amLODIPine 5mg tablet PO SCH (08:10)
[2023-05-12 10:00] VITALS: BP 140/80; PULSE 79; RESP 15; TEMP 98.1; O2SAT 97
[2023-05-12] MEDS: insulin Lispro (HumaLOG) vial - multi-dose SQ SCH (15:32)
[2023-05-12 18:00] VITALS: BP 131/78; PULSE 82; RESP 15; TEMP 98.9; O2SAT 97
--- NOTE | 2023-05-12 18:37 | NUR ---
Problems reprioritized. Patient report given, questions answered & plan of care reviewed with nereyda MCGUIRE.
[2023-05-12 20:00] VITALS: RESP 16; O2SAT 96
--- NOTE | 2023-05-12 20:00 | NUR ---
Patient in room ORTHO 4012. I have received report from CAROL and had the opportunity to ask questions and assume patient care.
[2023-05-12] MEDS: atorvastatin 10mg tablet PO SCH (20:33)
[2023-05-12] MEDS ORDERED: acetaminophen 325mg tablet PO PRN (21:20)
[2023-05-12] MEDS: insulin glargine (Lantus) pen - multi-dose SQ SCH (21:49)
[2023-05-12 22:00] VITALS: BP 138/72; PULSE 85; RESP 16; TEMP 98; O2SAT 96
[2023-05-13] MEDS: normal saline 1000ml 1,000 ML IV SCH ×3 (02:30→23:13)
[2023-05-13 06:00] VITALS: BP 154/84; PULSE 84; RESP 16; TEMP 98.1; O2SAT 97
--- NOTE | 2023-05-13 06:31 | NUR ---
Problems reprioritized. Patient report given, questions answered & plan of care reviewed with
[2023-05-13 07:25] LABS: BASOPHILS % (AUTO) 0.6 % (0-1); EOSINOPHILS # (AUTO) 0.1 X10'3 (0-0.9); EOSINOPHILS % (AUTO) 1.7 % (0-6); HEMATOCRIT 25.3 % (42.0-52.0); HEMOGLOBIN 8.2 g/dl (14.0-17.9); MEAN CORPUSCULAR HEMOGLOBIN 27.7 PG (27.0-31.0); MEAN CORPUSCULAR HGB CONC 32.4 g/dL (33.0-36.5); MEAN CORPUSCULAR VOLUME 85.4 FL (78-98); MEAN PLATELET VOLUME 7.1 FL (7.4-10.4); MONOCYTES # (AUTO) 0.5 X10'3 (0-0.9); MONOCYTES % (AUTO) 6.2 % (2-12); NEUTROPHILS % (AUTO) 78.5 % (42-75); PLATELET COUNT 395 X10'3 (140-440); RED BLOOD COUNT 2.97 X10'6 (4.70-6.10); RED CELL DISTRIBUTION WIDTH 15.7 % (11.5-14.5); WHITE BLOOD COUNT 7.7 X10'3 (4.5-11.0)
[2023-05-13 07:31] LABS: ALANINE AMINOTRANSFERASE 10 U/L (12-78); ALBUMIN 2.1 G/DL (3.4-5.0); ALBUMIN/GLOBULIN RATIO 0.6 (1.1-1.5); ALKALINE PHOSPHATASE 69 IU/L (46-116); ANION GAP 9 (8-16); ASPARTATE AMINO TRANSFERASE 15 U/L (10-37); BILIRUBIN,TOTAL 0.3 MG/DL (0.1-1.0); BLOOD UREA NITROGEN 28 MG/DL (7-18); BUN/CREATININE RATIO 9.6 (10.0-20.0); CALCIUM 8.1 MG/DL (8.5-10.1); CHLORIDE 106 MMOL/L (99-107); CREATININE 2.91 MG/DL (0.60-1.10); GLUCOSE 122 MG/DL (70-104); MAGNESIUM 1.5 MG/DL (1.5-2.4); POTASSIUM 4.1 MMOL/L (3.5-5.1); SODIUM 138 MMOL/L (135-145); TOTAL PROTEIN 5.9 G/DL (6.4-8.2); eCRCL 16 ML/MIN; eGFR 21 ML/MIN
[2023-05-13 08:00] VITALS: RESP 17; O2SAT 97
[2023-05-13] MEDS: K and/or MAG REPLACEMENT MC SCH ×2 (08:00→19:37)
[2023-05-13] MEDS: insulin Lispro (HumaLOG) vial - multi-dose SQ SCH ×2 (09:37→14:15)
[2023-05-13] MEDS: cyanocobalamin 500mcg tablet PO SCH (09:38)
[2023-05-13] MEDS: amLODIPine 5mg tablet PO SCH (09:39)
[2023-05-13] MEDS: docusate sod 100mg capsule PO SCH ×2 (09:39→19:38)
[2023-05-13] MEDS: lactobacillus rhamnosus 10,000 MMU CELLS/CAPSULE PO SCH ×2 (09:39→19:41)
[2023-05-13 10:00] VITALS: BP 131/81; PULSE 87; RESP 16; TEMP 97.9; O2SAT 99
--- NOTE | 2023-05-13 12:18 | NUR ---
Reassessment: Pt continues on CHO controlled diet with fair PO intake for geriatric age, documented with average 58% PO intake since admit meeting 66% estimated energy needs and 86% estimated protein needs. Recommend Ensure Enlive BID to assist with meeting estimated nutrient needs, pending physician/resident approval in EMR prior to pt receiving ONS. IF pt continues with current average meal intake and with minimum average 78% PO intake of ONS BID pt will meet 100% estimated protein and energy needs. LBM 05/12 per EMR. Will continue to follow and monitor need for further nutrition intervention. Recommendations 1. Liberalize to regular diet given geriatric age and DM well controlled with A1c 7.4% requiring minimal insulin coverage during admit, d/w RN 2. Ensure Enlive BIDBD, pending physician/resident approval in EMR 3. Routine bowel care and probiotic per physician 4. Scaled wt this admit; subsequent weekly scaled wts Addendum: 05/13/23 at [address] Amended: Links added.
[2023-05-13] MEDS: piperacillin/tazo 3.375gm/50ml 50 ML IV SCH (16:18)
--- NOTE | 2023-05-13 17:07 | NUR ---
Patient low at 63. Patient wanted Apple juice and not the tablets. 240cc given and will check BS per protocol
[2023-05-13 18:00] VITALS: BP 111/65; PULSE 80; RESP 16; TEMP 97.8; O2SAT 98
--- NOTE | 2023-05-13 18:10 | NUR ---
Patient in room ORTHO 4012. I have received report from LIANG Merida and had the opportunity to ask questions and assume patient care.
[2023-05-13] MEDS: atorvastatin 10mg tablet PO SCH (19:41)
[2023-05-13 20:00] VITALS: RESP 17; O2SAT 97
[2023-05-13] MEDS: insulin glargine (Lantus) pen - multi-dose SQ SCH (21:00)
[2023-05-13 22:00] VITALS: BP 138/78; PULSE 77; RESP 17; TEMP 97.9; O2SAT 97
[2023-05-14] MEDS: piperacillin/tazo 3.375gm/50ml 50 ML IV SCH ×3 (00:03→16:04)
[2023-05-14 06:00] VITALS: BP 145/87; PULSE 74; RESP 17; TEMP 97.5; O2SAT 98
--- NOTE | 2023-05-14 06:01 | NUR ---
Pt. walked [facility]
--- NOTE | 2023-05-14 06:05 | NUR ---
Problems reprioritized. Patient report given, questions answered & plan of care reviewed with LIANG Palacios.
--- NOTE | 2023-05-14 06:20 | NUR ---
RECEIVED REPORT FROM LIANG PARSON
[2023-05-14 06:27] LABS: BASOPHILS # (AUTO) 0.1 X10'3 (0-0.2); EOSINOPHILS # (AUTO) 0.2 X10'3 (0-0.9); EOSINOPHILS % (AUTO) 2.6 % (0-6); HEMATOCRIT 29.9 % (42.0-52.0); HEMOGLOBIN 9.6 g/dl (14.0-17.9); LYMPHOCYTES # (AUTO) 1.8 X10'3 (1.1-4.8); LYMPHOCYTES % (AUTO) 20.1 % (21-51); MEAN CORPUSCULAR HEMOGLOBIN 27.7 PG (27.0-31.0); MEAN CORPUSCULAR HGB CONC 32.1 g/dL (33.0-36.5); MEAN CORPUSCULAR VOLUME 86.2 FL (78-98); MONOCYTES # (AUTO) 0.7 X10'3 (0-0.9); MONOCYTES % (AUTO) 7.3 % (2-12); NEUTROPHILS # (AUTO) 6.2 X10'3 (1.8-7.7); PLATELET COUNT 532 X10'3 (140-440); RED BLOOD COUNT 3.46 X10'6 (4.70-6.10); RED CELL DISTRIBUTION WIDTH 15.7 % (11.5-14.5)
[2023-05-14 06:52] LABS: ALANINE AMINOTRANSFERASE 13 U/L (12-78); ALBUMIN 2.6 G/DL (3.4-5.0); ALBUMIN/GLOBULIN RATIO 0.6 (1.1-1.5); ALKALINE PHOSPHATASE 69 IU/L (46-116); ANION GAP 11 (8-16); ASPARTATE AMINO TRANSFERASE 17 U/L (10-37); BILIRUBIN,TOTAL 0.4 MG/DL (0.1-1.0); BLOOD UREA NITROGEN 27 MG/DL (7-18); BUN/CREATININE RATIO 9.5 (10.0-20.0); CALCIUM 8.5 MG/DL (8.5-10.1); CHLORIDE 104 MMOL/L (99-107); CREATININE 2.83 MG/DL (0.60-1.10); GLUCOSE 113 MG/DL (70-104); MAGNESIUM 1.5 MG/DL (1.5-2.4); POTASSIUM 4.2 MMOL/L (3.5-5.1); SODIUM 140 MMOL/L (135-145); TOTAL CARBON DIOXIDE 24.6 MMOL/L (24-32); TOTAL PROTEIN 6.8 G/DL (6.4-8.2); eCRCL 16 ML/MIN; eGFR 22 ML/MIN
[2023-05-14] MEDS: normal saline 1000ml 1,000 ML IV SCH ×2 (07:25→16:14)
[2023-05-14] MEDS: K and/or MAG REPLACEMENT MC SCH ×2 (08:00→20:00)
[2023-05-14] MEDS: docusate sod 100mg capsule PO SCH ×2 (08:00→19:44)
[2023-05-14] MEDS: lactobacillus rhamnosus 10,000 MMU CELLS/CAPSULE PO SCH ×2 (08:10→20:38)
[2023-05-14] MEDS: cyanocobalamin 500mcg tablet PO SCH (08:11)
[2023-05-14] MEDS: amLODIPine 5mg tablet PO SCH (08:12)
[2023-05-14 10:00] VITALS: BP 112/69; PULSE 73; RESP 14; TEMP 98.4; O2SAT 99
[2023-05-14 18:00] VITALS: BP 125/74; PULSE 75; RESP 14; TEMP 98.4; O2SAT 97
--- NOTE | 2023-05-14 18:22 | NUR ---
GAVE REPORT TO LIANG SANTIAGO
--- NOTE | 2023-05-14 18:39 | NUR ---
Patient in room ORTHO 4012. I have received report from AKASH TAVERA and had the opportunity to ask questions and assume patient care.
[2023-05-14 20:00] VITALS: RESP 14; O2SAT 97
[2023-05-14] MEDS: atorvastatin 10mg tablet PO SCH (20:38)
[2023-05-14] MEDS: insulin glargine (Lantus) pen - multi-dose SQ SCH (20:40)
[2023-05-14 22:00] VITALS: BP 108/57; PULSE 67; RESP 18; TEMP 98.6; O2SAT 92
[2023-05-15] MEDS: piperacillin/tazo 3.375gm/50ml 50 ML IV SCH ×2 (00:51→08:40)
[2023-05-15] MEDS: normal saline 1000ml 1,000 ML IV SCH ×3 (01:36→21:07)
[2023-05-15 06:00] VITALS: BP 116/61; PULSE 70; RESP 16; TEMP 98.9; O2SAT 99
--- NOTE | 2023-05-15 06:15 | NUR ---
RECEIVED REPORT FROM LIANG SANTIAGO
--- NOTE | 2023-05-15 06:20 | NUR ---
Problems reprioritized. Patient report given, questions answered & plan of care reviewed with AKASH TAVERA.
[2023-05-15] MEDS: docusate sod 100mg capsule PO SCH ×2 (08:00→19:49)
[2023-05-15] MEDS: K and/or MAG REPLACEMENT MC SCH ×2 (08:00→20:00)
[2023-05-15] MEDS: lactobacillus rhamnosus 10,000 MMU CELLS/CAPSULE PO SCH ×2 (08:38→21:07)
[2023-05-15] MEDS: amLODIPine 5mg tablet PO SCH (08:39)
[2023-05-15] MEDS: cyanocobalamin 500mcg tablet PO SCH (08:39)
[2023-05-15 11:00] VITALS: BP 120/66; PULSE 66; RESP 14; TEMP 98.1; O2SAT 98
[2023-05-15] MEDS: meropenem inj 500 MG in normal saline 100ml IV soln 100 ML IV SCH ×2 (11:04→21:07)
[2023-05-15 11:42] LABS: ALANINE AMINOTRANSFERASE 10 U/L (12-78); ALBUMIN 2.2 G/DL (3.4-5.0); ALBUMIN/GLOBULIN RATIO 0.6 (1.1-1.5); ALKALINE PHOSPHATASE 52 IU/L (46-116); ANION GAP 9 (8-16); ASPARTATE AMINO TRANSFERASE 11 U/L (10-37); BILIRUBIN,TOTAL 0.3 MG/DL (0.1-1.0); BLOOD UREA NITROGEN 26 MG/DL (7-18); BUN/CREATININE RATIO 9.3 (10.0-20.0); CALCIUM 7.8 MG/DL (8.5-10.1); CHLORIDE 105 MMOL/L (99-107); CREATININE 2.79 MG/DL (0.60-1.10); GLUCOSE 160 MG/DL (70-104); POTASSIUM 4.1 MMOL/L (3.5-5.1); SODIUM 138 MMOL/L (135-145); TOTAL CARBON DIOXIDE 23.6 MMOL/L (24-32); eCRCL 16 ML/MIN; eGFR 22 ML/MIN
--- NOTE | 2023-05-15 13:31 | NUR ---
was sent to lunch by charge at 1200, charge told me that she would take the patient's blood glucose, got back from lunch asked charge nurse if she checked blood glucose, charge nurse told me she checked blood glucose, charge nurse did not write blood glucose down and blood glucose did not populate into [employer] checked on patient, patient is alert and orientated continue to monitor patient Addendum: 05/15/23 at 1334 by Sadia Betancourt RN disregard the above message, the blood glucose finally populated and the patient's bg is 127
[2023-05-15 18:00] VITALS: BP 134/71; PULSE 77; RESP 13; TEMP 98.8; O2SAT 97
--- NOTE | 2023-05-15 18:00 | NUR ---
Patient in room ORTHO 4012. I have received report from LIANG Palacios and had the opportunity to ask questions and assume patient care.
--- NOTE | 2023-05-15 18:07 | NUR ---
gave report to shani maldonado
[2023-05-15] MEDS: insulin glargine (Lantus) pen - multi-dose SQ SCH (21:00)
[2023-05-15] MEDS: atorvastatin 10mg tablet PO SCH (21:07)
[2023-05-15 22:00] VITALS: BP 120/65; PULSE 69; RESP 16; TEMP 98.1; O2SAT 98
[2023-05-16] MEDS: normal saline 1000ml 1,000 ML IV SCH (05:57)
--- NOTE | 2023-05-16 06:11 | NUR ---
Problems reprioritized. Patient report given, questions answered & plan of care reviewed with LIANG Duran.
--- NOTE | 2023-05-16 06:12 | NUR ---
Patient in room ORTHO 4012. I have received report from eliot mcleod and had the opportunity to ask questions and assume patient care.
[2023-05-16 06:14] VITALS: BP 113/64; PULSE 72; RESP 16; TEMP 98.9; O2SAT 97
[2023-05-16] MEDS: docusate sod 100mg capsule PO SCH (07:56)
[2023-05-16 07:57] VITALS: BP_SYST 113; PULSE 72
[2023-05-16] MEDS: lactobacillus rhamnosus 10,000 MMU CELLS/CAPSULE PO SCH (07:57)
[2023-05-16] MEDS: amLODIPine 5mg tablet PO SCH (07:57)
[2023-05-16] MEDS: cyanocobalamin 500mcg tablet PO SCH (07:57)
[2023-05-16] MEDS: K and/or MAG REPLACEMENT MC SCH (08:00)
[2023-05-16 09:06] LABS: BASOPHILS # (AUTO) 0.1 X10'3 (0-0.2); EOSINOPHILS # (AUTO) 0.2 X10'3 (0-0.9); EOSINOPHILS % (AUTO) 2.3 % (0-6); HEMATOCRIT 25.8 % (42.0-52.0); HEMOGLOBIN 8.3 g/dl (14.0-17.9); LYMPHOCYTES # (AUTO) 1.2 X10'3 (1.1-4.8); MEAN CORPUSCULAR HEMOGLOBIN 27.9 PG (27.0-31.0); MEAN CORPUSCULAR HGB CONC 32.2 g/dL (33.0-36.5); MEAN CORPUSCULAR VOLUME 86.6 FL (78-98); MEAN PLATELET VOLUME 6.9 FL (7.4-10.4); MONOCYTES # (AUTO) 0.4 X10'3 (0-0.9); NEUTROPHILS # (AUTO) 5.3 X10'3 (1.8-7.7); NEUTROPHILS % (AUTO) 73.7 % (42-75); PLATELET COUNT 414 X10'3 (140-440); RED BLOOD COUNT 2.98 X10'6 (4.70-6.10); RED CELL DISTRIBUTION WIDTH 16.1 % (11.5-14.5); WHITE BLOOD COUNT 7.2 X10'3 (4.5-11.0)
[2023-05-16 09:21] LABS: ALANINE AMINOTRANSFERASE 11 U/L (12-78); ALBUMIN 2.3 G/DL (3.4-5.0); ALBUMIN/GLOBULIN RATIO 0.6 (1.1-1.5); ALKALINE PHOSPHATASE 50 IU/L (46-116); ANION GAP 10 (8-16); ASPARTATE AMINO TRANSFERASE 15 U/L (10-37); BILIRUBIN,TOTAL 0.4 MG/DL (0.1-1.0); BLOOD UREA NITROGEN 26 MG/DL (7-18); BUN/CREATININE RATIO 9.7 (10.0-20.0); CALCIUM 7.8 MG/DL (8.5-10.1); CHLORIDE 103 MMOL/L (99-107); CREATININE 2.69 MG/DL (0.60-1.10); GLUCOSE 120 MG/DL (70-104); POTASSIUM 3.8 MMOL/L (3.5-5.1); SODIUM 138 MMOL/L (135-145); TOTAL CARBON DIOXIDE 24.9 MMOL/L (24-32); eCRCL 17 ML/MIN; eGFR 23 ML/MIN
[2023-05-16] MEDS: meropenem inj 500 MG in normal saline 100ml IV soln 100 ML IV SCH (09:59)
[2023-05-16] MEDS ORDERED: FERR-39 PO (10:32)
[2023-05-16] MEDS ORDERED: FOLI1TAB27 PO ×2 (10:32→12:43)
[2023-05-16 12:18] LABS: TOTAL CELLS COUNTED 100
[2023-05-16 12:19] LABS: ANISOCYTOSIS 1+; HYPERSEGMENTED NEUTROPHILS 2+; PLATELET ESTIMATE NORMAL
[2023-05-16] MEDS ORDERED: FERR325T28 PO (12:43)
--- NOTE | 2023-05-16 13:50 | NUR ---
PT DISCHARGED IN STABLE CONDITION. LEFT FACILITY IN PRIVATE VEHICLE WITH SON. IV DC CANULA INTACT, PICC LINE L UPPER ARM IN PLACE FOR INTERMEDIATE ABX. CHILDS CATH IN PLACE ALONG WITH UROSTOMY. FOLLOW UP INSTRUCTIONS GIVEN, ALL QUESTIONS ANSWERED. ALL BELONGINGS IN HAND. Addendum: 05/16/23 at 1650 by Екатерина Jimenez RN Amended: Links added.
== END 2023-05-16 13:50 | disposition home health service (06) | DRG 853 ==
LOC: ER 10:18 → ORTHO 4S 18:53
PROVIDERS: ADMIT Family Medicine; ATTEND Family Medicine
PROC: 0T7D8ZZ Dilation of Urethra, Via Natural or Artificial Opening Endoscopic (ICD-10-PCS; 2023-05-09)
PROC: BT1F1ZZ Fluoroscopy of Left Kidney, Ureter and Bladder using Low Osmolar Contrast (ICD-10-PCS; 2023-05-09)
PROC: 05HY33Z Insertion of Infusion Device into Upper Vein, Percutaneous Approach (ICD-10-PCS; 2023-05-09)
PROC: 0T778DZ Dilation of Left Ureter with Intraluminal Device, Via Natural or Artificial Opening Endoscopic (ICD-10-PCS; principal; 2023-05-09 19:14)
PROC: 30233N1 Transfusion of Nonautologous Red Blood Cells into Peripheral Vein, Percutaneous Approach (ICD-10-PCS; 2023-05-10)
DX: A41.9 Sepsis, unspecified organism (principal); N17.0 Acute kidney failure with tubular necrosis; E87.1 Hypo-osmolality and hyponatremia; N13.6 Pyonephrosis; I10 Essential (primary) hypertension; D64.9 Anemia, unspecified; Z66 Do not resuscitate; E11.22 Type 2 diabetes mellitus with diabetic chronic kidney disease; E11.65 Type 2 diabetes mellitus with hyperglycemia; E78.00 Pure hypercholesterolemia, unspecified; Z20.822 Contact with and (suspected) exposure to COVID-19; I12.9 Hypertensive chronic kidney disease with stage 1 through stage 4 chronic kidney disease, or unspecified chronic kidney disease; R65.20 Severe sepsis without septic shock; N18.9 Chronic kidney disease, unspecified; Z82.3 Family history of stroke; Z83.3 Family history of diabetes mellitus; Z85.038 Personal history of other malignant neoplasm of large intestine; Z85.46 Personal history of malignant neoplasm of prostate; Z87.442 Personal history of urinary calculi; Z87.891 Personal history of nicotine dependence; Z88.1 Allergy status to other antibiotic agents; Z88.6 Allergy status to analgesic agent; Z90.79 Acquired absence of other genital organ(s)
CPT/HCPCS: 36410; 36415; 36430; 71045; 74176; 74420; 76000; 76942; 80053; 81001; 82948; 83036; 83605; 83690; 83735; 84145; 85007; 85025; 85027; 86885; 86900; 86901; 86920; 87040; 87077; 87081; 87088; 87186; 87811; 93005; 97116; 97161; 97530; 99285; A4314; A4615; A4618; A5200; A6449; C1751; C1758; C1769; C2617; G0378; J0690; J1200; J1815; J1956; J2185; J2270; J2543; J2704; J3010; J3490; J7030; J7040; P9016; Q9967

== ENCOUNTER 2023-10-12 12:04 | Day surgery (SDC) | payer OTHER ==
[~2023-10-12] VITALS: Ht 167.6 cm; Wt 58.0 kg
[~2023-10-12 12:04] MED LIST changes: +AMLO10TA PO; -CEPH-585 PO; +CYAN-104 PO; +FERR-39 PO; +FOLI1TAB27 PO; +LACT1TAB15 PO; -METF500T PO; -ONDA8TAB13 PO; -UNABLE TO OBTAIN
[2023-10-12 12:30] VITALS: BP 190/104; PULSE 74; RESP 18; TEMP 97.8; O2SAT 97
[2023-10-12] MEDS ORDERED: PHO667C PO (12:33)
[2023-10-12] MEDS ORDERED: HYDR-3964 PO (12:33)
[2023-10-12] MEDS ORDERED: HYDR25TA90 PO (12:33)
[2023-10-12] MEDS ORDERED: cefazolin 2gm/D5W 100mL 100 ML IV ONE (13:01)
[2023-10-12 13:19] LABS: INR 1.1 INR; PROTHROMBIN TIME 11.9 SECONDS (9.0-12.0)
[2023-10-12 13:24] LABS: BASOPHILS % (AUTO) 0.6 % (0-1); EOSINOPHILS # (AUTO) 0.1 X10'3 (0-0.9); EOSINOPHILS % (AUTO) 1.1 % (0-6); HEMATOCRIT 37.5 % (42.0-52.0); HEMOGLOBIN 11.9 g/dl (14.0-17.9); LYMPHOCYTES # (AUTO) 0.8 X10'3 (1.1-4.8); LYMPHOCYTES % (AUTO) 9.8 % (21-51); MEAN CORPUSCULAR HEMOGLOBIN 30.8 PG (27.0-31.0); MEAN CORPUSCULAR HGB CONC 31.8 g/dL (33.0-36.5); MEAN PLATELET VOLUME 7.6 FL (7.4-10.4); MONOCYTES # (AUTO) 1.1 X10'3 (0-0.9); NEUTROPHILS # (AUTO) 5.7 X10'3 (1.8-7.7); NEUTROPHILS % (AUTO) 74.5 % (42-75); PLATELET COUNT 292 X10'3 (140-440); RED BLOOD COUNT 3.87 X10'6 (4.70-6.10); RED CELL DISTRIBUTION WIDTH 17.5 % (11.5-14.5); WHITE BLOOD COUNT 7.7 X10'3 (4.5-11.0)
[2023-10-12] MEDS ORDERED: LIDOcaine 1% 30ml preserv. free vial ONE (14:52)
[2023-10-12] MEDS ORDERED: heparin 1,000unit/ml 10ml vial 10 ML ONE (14:53)
[2023-10-12 15:30] VITALS: BP 190/104; PULSE 73; RESP 18; O2SAT 96
[2023-10-12 15:45] VITALS: BP 192/104; PULSE 65; RESP 18; O2SAT 96
== END 2023-10-12 15:55 | disposition home or self-care (01) ==
LOC: SSTAY O 12:04
PROVIDERS: ATTEND Radiology Vascular & Interventional Radiology
DX: T82.49XA Other complication of vascular dialysis catheter, initial encounter (principal); N18.6 End stage renal disease; Z88.8 Allergy status to other drugs, medicaments and biological substances; Z88.1 Allergy status to other antibiotic agents; Z91.018 Allergy to other foods; Z79.899 Other long term (current) drug therapy; Z82.3 Family history of stroke; Z83.3 Family history of diabetes mellitus; Y83.8 Other surgical procedures as the cause of abnormal reaction of the patient, or of later complication, without mention of misadventure at the time of the procedure; Y92.89 Other specified places as the place of occurrence of the external cause
CPT/HCPCS: 36415; 36581; 77001; 85025; 85610; C1750; J1644; J3490; J7030; A9270; C1769